=== PATIENT | female | born 1945 | race Hispanic/Latino ===

== ENCOUNTER 2024-06-04 18:26 | Inpatient (IN) | payer MEDICARE ==
[~2024-06-04] VITALS: Ht 154.9 cm; Wt 45.4 kg
[2024-06-04 18:37] VITALS: PULSE 80; RESP 18; TEMP 97.2
[2024-06-04 19:19] LABS: BASOPHILS % 0.4 % (0.0-1.0); EOSINOPHILS # (AUTO) 0.4 (0.0-0.4); EOSINOPHILS % 3.2 % (0.0-6.0); HEMOGLOBIN 9.1 g/dL (12.0-16.0); LYMPHOCYTES # (AUTO) 2.3 (1.0-3.2); LYMPHOCYTES % 20.7 % (18.0-39.1); MEAN CORPUSCULAR HEMOGLOBIN 29.9 pg (28-32); MEAN CORPUSCULAR HGB CONC 32.5 g/dL (31-35); MEAN CORPUSCULAR VOLUME 92.1 fL (81-99); MONOCYTES # (AUTO) 0.7 (0.2-0.8); MONOCYTES % 6.7 % (4.4-11.3); NEUTROPHILS # (AUTO) 7.5 (2.1-6.9); NEUTROPHILS % 68.7 % (38.7-80.0); PLATELET COUNT 447 x10e3/uL (140-360); RED BLOOD COUNT 3.04 x10e6/uL (3.6-5.1); RED CELL DISTRIBUTION WIDTH 17.3 % (11.7-14.4); WHITE BLOOD COUNT 10.96 x10e3/uL (4.8-10.8)
[2024-06-04] MEDS: LIDOCAINE HCL 1% LOCAL INJ 20 ML VIAL INJ ONE (19:23)
[2024-06-04 19:58] LABS: TROPONIN I 0.026 ng/mL (0-0.300)
[2024-06-04 20:22] LABS: ALBUMIN 3.3 g/dL (3.5-5.0); ALBUMIN/GLOBULIN RATIO 0.9 (0.8-2.0); ANION GAP 17.7 mmol/L (8-16); BILIRUBIN,TOTAL 0.2 mg/dL (0.2-1.2); CALCIUM 9.8 mg/dL (8.4-10.2); CREATININE, SERUM 1.59 mg/dL (0.57-1.11); POTASSIUM 4.7 mmol/L (3.5-5.1); TOTAL PROTEIN 7.1 g/dL (6.5-8.1)
[2024-06-04 22:05] VITALS: BP 151/59; PULSE 69; RESP 20; TEMP 98.6; O2SAT 100
[2024-06-04] MEDS: Morphine 4mg INJECTION 4 MG/ML INJ IV PRN (22:55)
[2024-06-05] VITALS (8 sets, daily range): BP systolic 98–122; BP diastolic 50–60; PULSE 72–97; RESP 17–20; TEMP 97.3–98.6; O2SAT 96–100
[2024-06-05] MEDS ORDERED: ULTRAM 50MG50 MG PO (01:56)
[2024-06-05] MEDS ORDERED: HYDROCODON-ACE1 EA11 PO (01:56)
[2024-06-05] MEDS ORDERED: COLLAGENASE1 EACH TOP (01:56)
[2024-06-05] MEDS ORDERED: NEURONTIN100 MG PO (01:56)
[2024-06-05] MEDS ORDERED: AMITRIPTYLINE H10 MG PO (01:56)
[2024-06-05] MEDS ORDERED: GABAPENTIN100 MG PO (01:56)
[2024-06-05] MEDS ORDERED: ASPIRIN81 MG PO (01:56)
[2024-06-05] MEDS ORDERED: ROSUVASTATIN CA20 MG PO (01:56)
[2024-06-05] MEDS ORDERED: ELIQUIS5 MG PO (01:56)
[2024-06-05] MEDS ORDERED: CLOPIDOGREL75 MG PO (01:56)
[2024-06-05] MEDS ORDERED: SERTRALINE HCL100 MG PO (01:56)
[2024-06-05] MEDS ORDERED: ROSUVASTATIN CA10 MG PO (01:56)
[2024-06-05] MEDS ORDERED: METFORMIN HCL850 MG PO (01:56)
[2024-06-05] MEDS ORDERED: PIOGLITAZONE HC30 MG PO (01:56)
[2024-06-05] MEDS ORDERED: LISINOPRIL5 MG PO (01:56)
[2024-06-05 06:52] LABS: INR 1.38; PROTHROMBIN TIME 17.7 seconds (11.9-14.5)
[2024-06-05 06:53] LABS: PARTIAL THROMBOPLASTIN TIME 42.1 seconds (23.8-35.5)
[2024-06-05 07:21] LABS: ALBUMIN/GLOBULIN RATIO 0.9 (0.8-2.0); ANION GAP 15.7 mmol/L (8-16); BILIRUBIN,TOTAL 0.3 mg/dL (0.2-1.2); CREATININE, SERUM 1.4 mg/dL (0.57-1.11); POTASSIUM 4.7 mmol/L (3.5-5.1); TOTAL PROTEIN 6.5 g/dL (6.5-8.1)
[2024-06-05] MEDS: ASPIRIN 81 MG CHEW TAB PO ONE (08:13)
[2024-06-05 08:20] LABS: BASOPHILS % 0.3 % (0.0-1.0); EOSINOPHILS # (AUTO) 0.3 (0.0-0.4); EOSINOPHILS % 4.4 % (0.0-6.0); LYMPHOCYTES # (AUTO) 2.2 (1.0-3.2); LYMPHOCYTES % 29.5 % (18.0-39.1); MEAN CORPUSCULAR HEMOGLOBIN 29.7 pg (28-32); MEAN CORPUSCULAR HGB CONC 32.4 g/dL (31-35); MEAN CORPUSCULAR VOLUME 91.5 fL (81-99); MONOCYTES # (AUTO) 0.6 (0.2-0.8); MONOCYTES % 8.6 % (4.4-11.3); NEUTROPHILS # (AUTO) 4.2 (2.1-6.9); NEUTROPHILS % 56.9 % (38.7-80.0); PLATELET COUNT 379 x10e3/uL (140-360); RED BLOOD COUNT 2.46 x10e6/uL (3.6-5.1); RED CELL DISTRIBUTION WIDTH 16.8 % (11.7-14.4); WHITE BLOOD COUNT 7.35 x10e3/uL (4.8-10.8)
[2024-06-05 08:37] LABS: HEMATOCRIT 22.5 % (34.2-44.1); HEMOGLOBIN 7.3 g/dL (12.0-16.0)
[2024-06-05] MEDS: APIXABAN 5 MG TABLET PO SCH (08:51)
[2024-06-05 09:22] LABS: TROPONIN I 0.016 ng/mL (0-0.300)
[2024-06-05] MEDS ORDERED: DEXTROSE 50% SYRINGE 50 ML IV PRN (12:45)
[2024-06-05 13:33] LABS: TROPONIN I 0.011 ng/mL (0-0.300)
[2024-06-05] MEDS: Doxycycline IV 100 MG in SODIUM CHLORIDE 0.9% 100 ML IV SCH (13:41)
[2024-06-05 14:01] LABS: CHOL/HDL RATIO 2.4 (3.0-3.6)
[2024-06-05 14:22] LABS: FERRITIN 21.52 ng/mL (4.63-204.00)
[2024-06-05] MEDS: INSULIN REGULAR, HUMAN 100 UNIT/1 ML SQ SCH (16:30)
[2024-06-05] MEDS: SENNA-S TABLET PO SCH (17:34)
[2024-06-05] MEDS: SODIUM BICARBONATE 8.4% SYRING 100 ML in DEXTROSE 5% 1,000 ML IV ONE (17:34)
[2024-06-05] MEDS: ATORVASTATIN 40 MG TAB PO SCH (20:51)
[2024-06-05] MEDS: SERTRALINE HCL 100 MG TAB PO SCH (20:51)
[2024-06-05] MEDS: FAMOTIDINE 20 MG TAB PO SCH (20:51)
[2024-06-05] MEDS: ENOXAPARIN SOD INJ 60 MG/0.6 ML SYR SC SCH (20:51)
[2024-06-06] VITALS (7 sets, daily range): BP systolic 109–144; BP diastolic 47–62; PULSE 75–92; RESP 17–18; TEMP 97.7–98.7; O2SAT 98–100
[2024-06-06] MEDS: ONDANSETRON HCL INJ 2MG/ML 2ML 2 MG/ML VIAL IV PRN (00:50)
[2024-06-06 06:39] LABS: BASOPHILS % 0.5 % (0.0-1.0); EOSINOPHILS # (AUTO) 0.4 (0.0-0.4); EOSINOPHILS % 4.5 % (0.0-6.0); HEMATOCRIT 24.8 % (34.2-44.1); LYMPHOCYTES # (AUTO) 2.1 (1.0-3.2); LYMPHOCYTES % 26.8 % (18.0-39.1); MEAN CORPUSCULAR HEMOGLOBIN 29.9 pg (28-32); MEAN CORPUSCULAR HGB CONC 32.3 g/dL (31-35); MEAN CORPUSCULAR VOLUME 92.5 fL (81-99); MONOCYTES # (AUTO) 0.6 (0.2-0.8); MONOCYTES % 6.9 % (4.4-11.3); NEUTROPHILS # (AUTO) 4.9 (2.1-6.9); NEUTROPHILS % 60.9 % (38.7-80.0); PLATELET COUNT 427 x10e3/uL (140-360); RED BLOOD COUNT 2.68 x10e6/uL (3.6-5.1); RED CELL DISTRIBUTION WIDTH 16.9 % (11.7-14.4); WHITE BLOOD COUNT 7.98 x10e3/uL (4.8-10.8)
[2024-06-06 07:00] LABS: ANION GAP 17.1 mmol/L (8-16); CALCIUM 9.4 mg/dL (8.4-10.2); CREATININE, SERUM 1.39 mg/dL (0.57-1.11)
[2024-06-06 07:23] LABS: POTASSIUM 5.1 mmol/L (3.5-5.1)
[2024-06-06] MEDS: AMITRIPTYLINE HCL 10 MG TAB PO SCH (08:27)
[2024-06-06] MEDS: ASPIRIN 81 MG CHEW TAB PO SCH (08:27)
[2024-06-06] MEDS ORDERED: SODIUM BICARBONATE 8.4% INJ 50 ML SYR IV STA (15:11)
[2024-06-06] MEDS: SODIUM BICARBONATE 8.4% VIAL 100 ML in DEXTROSE 5% 1,000 ML IV SCH (16:40)
[2024-06-07] VITALS (7 sets, daily range): BP systolic 118–140; BP diastolic 57–97; PULSE 76–84; RESP 16–18; TEMP 98–99; O2SAT 99–100
[2024-06-07 10:15] LABS: BASOPHILS % 0.4 % (0.0-1.0); EOSINOPHILS # (AUTO) 0.3 (0.0-0.4); EOSINOPHILS % 3.2 % (0.0-6.0); HEMATOCRIT 23.7 % (34.2-44.1); LYMPHOCYTES # (AUTO) 1.5 (1.0-3.2); LYMPHOCYTES % 19.6 % (18.0-39.1); MEAN CORPUSCULAR HEMOGLOBIN 30.4 pg (28-32); MEAN CORPUSCULAR HGB CONC 33.3 g/dL (31-35); MEAN CORPUSCULAR VOLUME 91.2 fL (81-99); MONOCYTES # (AUTO) 0.5 (0.2-0.8); NEUTROPHILS # (AUTO) 5.5 (2.1-6.9); NEUTROPHILS % 70.3 % (38.7-80.0); PLATELET COUNT 415 x10e3/uL (140-360); RED CELL DISTRIBUTION WIDTH 16.7 % (11.7-14.4); WHITE BLOOD COUNT 7.85 x10e3/uL (4.8-10.8)
[2024-06-07 10:22] LABS: HEMOGLOBIN 7.9 g/dL (12.0-16.0)
[2024-06-07 10:27] LABS: ANION GAP 15.1 mmol/L (8-16); CALCIUM 9.2 mg/dL (8.4-10.2); CREATININE, SERUM 1.38 mg/dL (0.57-1.11); POTASSIUM 4.1 mmol/L (3.5-5.1)
[2024-06-08] VITALS (7 sets, daily range): BP systolic 134–155; BP diastolic 57–71; PULSE 63–82; RESP 17–19; TEMP 97–98.7; O2SAT 97–100
[2024-06-09] VITALS (7 sets, daily range): BP systolic 140–168; BP diastolic 60–71; PULSE 66–80; RESP 16–19; TEMP 98.1–98.5; O2SAT 97–100
[2024-06-09 05:38] LABS: BASOPHILS % 0.5 % (0.0-1.0); EOSINOPHILS # (AUTO) 0.3 (0.0-0.4); EOSINOPHILS % 4.1 % (0.0-6.0); HEMATOCRIT 25.9 % (34.2-44.1); HEMOGLOBIN 8.4 g/dL (12.0-16.0); LYMPHOCYTES # (AUTO) 2.2 (1.0-3.2); LYMPHOCYTES % 30.4 % (18.0-39.1); MEAN CORPUSCULAR HEMOGLOBIN 29.5 pg (28-32); MEAN CORPUSCULAR HGB CONC 32.4 g/dL (31-35); MEAN CORPUSCULAR VOLUME 90.9 fL (81-99); MONOCYTES # (AUTO) 0.5 (0.2-0.8); MONOCYTES % 6.5 % (4.4-11.3); NEUTROPHILS # (AUTO) 4.3 (2.1-6.9); NEUTROPHILS % 58.4 % (38.7-80.0); PLATELET COUNT 380 x10e3/uL (140-360); RED BLOOD COUNT 2.85 x10e6/uL (3.6-5.1); RED CELL DISTRIBUTION WIDTH 16.9 % (11.7-14.4); WHITE BLOOD COUNT 7.28 x10e3/uL (4.8-10.8)
[2024-06-09 05:49] LABS: INR 1.07; PROTHROMBIN TIME 14.6 seconds (11.9-14.5)
[2024-06-09 06:14] LABS: ANION GAP 15.3 mmol/L (8-16); CALCIUM 8.6 mg/dL (8.4-10.2); CREATININE, SERUM 1.25 mg/dL (0.57-1.11)
[2024-06-09 06:16] LABS: POTASSIUM 3.3 mmol/L (3.5-5.1)
[2024-06-10] VITALS (8 sets, daily range): BP systolic 135–152; BP diastolic 56–64; PULSE 74–79; RESP 17–18; TEMP 97.8–99; O2SAT 97–100
[2024-06-10] MEDS: SODIUM CHLORIDE 0.9% 250ML 250 ML ONE (13:41)
[2024-06-10] MEDS: LIDOCAINE HCL 2% LOCAL 20 ML VIAL ONE (19:38)
[2024-06-10] MEDS: IOPAMIDOL 370 MG/ML 100 ML INFUS..BTL INJ ONE (19:38)
[2024-06-10] MEDS: MIDAZOLAM HCL 2 MG/2 ML VIAL ONE (19:38)
[2024-06-10] MEDS: HEPARIN SOD/SOD CHLORIDE 2,000 ML ONE (19:38)
[2024-06-10] MEDS: NITROGLYCERIN/D5W 200 MCG/ML 0 ML ONE (19:38)
[2024-06-10] MEDS: VERAPAMIL HCL 2.5 MG/ML 2 ML VIAL ONE (19:38)
[2024-06-10] MEDS: SODIUM CHLORIDE 0.9% 1000ML 1,000 ML ONE (19:38)
[2024-06-10] MEDS: FENTANYL CITRATE/PF 100MCG/2 ML INJ ONE (19:38)
[2024-06-10] MEDS: HEPARIN SOD (PORCINE) 1000 UNIT/ML 30ML ONE (19:38)
[2024-06-11] VITALS (9 sets, daily range): BP systolic 135–165; BP diastolic 56–79; PULSE 66–96; RESP 16–20; TEMP 97.6–98.7; O2SAT 99–100
[2024-06-11] MEDS ORDERED: FENTANYL CITRATE/PF 100MCG/2 ML INJ ONE (12:15)
[2024-06-11] MEDS ORDERED: LIDOCAINE HCL 2% LOCAL INJ 5 ML SDV VIAL INJ ONE (12:16)
[2024-06-11] MEDS ORDERED: SEVOFLURANE INHAL SOLN 250 ML PEN BTL ONE ×2 (12:16→13:21)
[2024-06-11] MEDS ORDERED: PROPOFOL IV EMULSION 10 MG/ML 20 ML VIAL ONE (12:16)
[2024-06-11] MEDS ORDERED: EPHEDRINE SULFATE INJ 50 MG/ML VIAL ONE (13:13)
[2024-06-11] MEDS ORDERED: FAMOTIDINE 20 MG/2 ML VIAL IV ONE (13:13)
[2024-06-11] MEDS ORDERED: ONDANSETRON HCL INJ 2MG/ML 2ML 2 MG/ML VIAL ONE (13:13)
[2024-06-11] MEDS ORDERED: ACETAMINOPHEN 1000 MG/100 ML 100 ML IV ONE (13:21)
[2024-06-11] MEDS: FENTANYL CITRATE/PF 100MCG/2 ML INJ ONE (14:27)
[2024-06-11] MEDS: ACETAMINOPHEN/CODEINE 300MG - 30MG TAB PO PRN (20:44)
[2024-06-12] MEDS: SODIUM CHLORIDE 0.9% 250ML 250 ML ONE (00:21)
[2024-06-12 02:39] VITALS: BP 141/77; PULSE 83; RESP 16; TEMP 97.6; O2SAT 98
[2024-06-12 06:38] LABS: BASOPHILS # (AUTO) 0.1 (0.0-0.1); BASOPHILS % 0.6 % (0.0-1.0); EOSINOPHILS # (AUTO) 0.3 (0.0-0.4); EOSINOPHILS % 3.4 % (0.0-6.0); HEMATOCRIT 23.9 % (34.2-44.1); HEMOGLOBIN 7.6 g/dL (12.0-16.0); LYMPHOCYTES # (AUTO) 2.7 (1.0-3.2); LYMPHOCYTES % 26.7 % (18.0-39.1); MEAN CORPUSCULAR HEMOGLOBIN 29.2 pg (28-32); MEAN CORPUSCULAR HGB CONC 31.8 g/dL (31-35); MEAN CORPUSCULAR VOLUME 91.9 fL (81-99); MONOCYTES # (AUTO) 0.6 (0.2-0.8); MONOCYTES % 5.9 % (4.4-11.3); NEUTROPHILS # (AUTO) 6.4 (2.1-6.9); PLATELET COUNT 274 x10e3/uL (140-360); RED CELL DISTRIBUTION WIDTH 17.2 % (11.7-14.4); WHITE BLOOD COUNT 10.12 x10e3/uL (4.8-10.8)
[2024-06-12 07:11] LABS: ANION GAP 14.7 mmol/L (8-16); CALCIUM 7.7 mg/dL (8.4-10.2); CREATININE, SERUM 0.95 mg/dL (0.57-1.11); POTASSIUM 3.7 mmol/L (3.5-5.1)
[2024-06-12 08:44] VITALS: BP 162/64; PULSE 74; RESP 18; TEMP 98.4; O2SAT 100
[2024-06-12 09:00] VITALS: BP 162/64; PULSE 74; RESP 18; TEMP 98.4; O2SAT 100
[2024-06-12] MEDS ORDERED: TRAMADOL HCL 50 MG TAB PO PRN (09:00)
[2024-06-12 16:24] VITALS: BP 136/68; PULSE 71; RESP 19; TEMP 98.2; O2SAT 100
[2024-06-12 19:40] VITALS: BP 155/63; PULSE 76; RESP 18; TEMP 97.6; O2SAT 99
[2024-06-12 23:09] VITALS: BP 169/65; PULSE 82; RESP 17; TEMP 97.8; O2SAT 100
[2024-06-13] VITALS (8 sets, daily range): BP systolic 150–165; BP diastolic 64–94; PULSE 68–84; RESP 17–20; TEMP 97.6–98.2; O2SAT 99–100
[2024-06-13 05:09] LABS: BASOPHILS # (AUTO) 0.1 (0.0-0.1); BASOPHILS % 0.6 % (0.0-1.0); EOSINOPHILS # (AUTO) 0.4 (0.0-0.4); EOSINOPHILS % 3.9 % (0.0-6.0); HEMATOCRIT 26.2 % (34.2-44.1); HEMOGLOBIN 8.8 g/dL (12.0-16.0); LYMPHOCYTES # (AUTO) 2.5 (1.0-3.2); LYMPHOCYTES % 26.2 % (18.0-39.1); MEAN CORPUSCULAR HEMOGLOBIN 29.9 pg (28-32); MEAN CORPUSCULAR HGB CONC 33.6 g/dL (31-35); MEAN CORPUSCULAR VOLUME 89.1 fL (81-99); MONOCYTES # (AUTO) 0.6 (0.2-0.8); MONOCYTES % 6.6 % (4.4-11.3); NEUTROPHILS # (AUTO) 5.9 (2.1-6.9); NEUTROPHILS % 62.5 % (38.7-80.0); PLATELET COUNT 286 x10e3/uL (140-360); RED BLOOD COUNT 2.94 x10e6/uL (3.6-5.1); RED CELL DISTRIBUTION WIDTH 16.7 % (11.7-14.4); WHITE BLOOD COUNT 9.43 x10e3/uL (4.8-10.8)
[2024-06-13 06:07] LABS: CALCIUM 7.8 mg/dL (8.4-10.2); CREATININE, SERUM 0.9 mg/dL (0.57-1.11)
[2024-06-13] MEDS: ACETAMINOPHEN 325 MG TAB PO SCH (13:53)
[2024-06-13] MEDS: CEPHALEXIN 500 MG CAP PO SCH (13:54)
[2024-06-13] MEDS: TRAMADOL HCL 50 MG TAB PO SCH (13:54)
[2024-06-14] VITALS: BP 152/75; PULSE 73; RESP 19; TEMP 97.9; O2SAT 100
[2024-06-14 04:00] VITALS: BP_SYST 136; BP_SYST 152; BP_DIAS 75; BP_DIAS 89; PULSE 77; PULSE 78; RESP 17; RESP 18; TEMP 97.9; TEMP 98.4; O2SAT 100
[2024-06-14 08:00] VITALS: BP 136/89; PULSE 77; RESP 18; TEMP 98.4; O2SAT 100
[2024-06-14 08:17] VITALS: BP 157/64; PULSE 81; RESP 18; TEMP 98; O2SAT 98
[2024-06-14] MEDS: POTASSIUM CHLORIDE 20 MEQ TAB CR PO STA (08:17)
[2024-06-14] MEDS ORDERED: HYDROCODON-ACE1 EA11 PO (10:21)
[2024-06-14] MEDS ORDERED: CEPHALEXIN500 MG PO (11:08)
[2024-06-14 12:41] VITALS: BP 104/73; PULSE 73; RESP 18; TEMP 98.7; O2SAT 99
== END 2024-06-14 13:43 | disposition home or self-care (01) | DRG 255 ==
LOC: ER 18:31 → ERHOLD 18:46 → MED/SURG3 21:39
PROVIDERS: ADMIT Internal Medicine; ATTEND Internal Medicine
PROC: 02HV33Z Insertion of Infusion Device into Superior Vena Cava, Percutaneous Approach (ICD-10-PCS; principal; 2024-06-06)
PROC: B41G1ZZ Fluoroscopy of Left Lower Extremity Arteries using Low Osmolar Contrast (ICD-10-PCS; 2024-06-09)
PROC: B4101ZZ Fluoroscopy of Abdominal Aorta using Low Osmolar Contrast (ICD-10-PCS; 2024-06-09)
PROC: 0Y6S0Z0 Detachment at Left 2nd Toe, Complete, Open Approach (ICD-10-PCS; 2024-06-11)
DX: E11.52 Type 2 diabetes mellitus with diabetic peripheral angiopathy with gangrene (principal); N17.0 Acute kidney failure with tubular necrosis; E87.21 Acute metabolic acidosis; L03.116 Cellulitis of left lower limb; E11.621 Type 2 diabetes mellitus with foot ulcer; L97.528 Non-pressure chronic ulcer of other part of left foot with other specified severity; E11.22 Type 2 diabetes mellitus with diabetic chronic kidney disease; I12.9 Hypertensive chronic kidney disease with stage 1 through stage 4 chronic kidney disease, or unspecified chronic kidney disease; E78.5 Hyperlipidemia, unspecified; N18.9 Chronic kidney disease, unspecified; D63.1 Anemia in chronic kidney disease; I25.10 Atherosclerotic heart disease of native coronary artery without angina pectoris; Z86.711 Personal history of pulmonary embolism; Z86.718 Personal history of other venous thrombosis and embolism; Z98.62 Peripheral vascular angioplasty status
CPT/HCPCS: 36246; 36415; 36569; 71045; 75630; 75710; 75736; 76937; 80048; 80053; 80061; 82550; 82607; 82728; 82948; 83036; 83540; 84466; 84484; 85025; 85610; 85730; 87071; 87075; 87205; 88304; 88305; 88311; 93005; 93306; 93925; 96372; 99152; 99284; C1760; C1769; C1894; J1644; J1650; J2003; J2250; J2270; J2405; J2543; J7030; J7050; J7070; Q9967